=== PATIENT | male | born 1995 | race Hispanic/Latino ===

== ENCOUNTER 2024-08-12 21:15 | Emergency (ER) | payer SELFPAY ==
[~2024-08-12] VITALS: Ht 165.1 cm; Wt 59.0 kg
[2024-08-12 21:51] LABS: BASOPHILS # (AUTO) 0.06 K/uL (0.00-0.20); BASOPHILS % (AUTO) 0.4 % (0.0-5.0); EOSINOPHILS # (AUTO) 0.03 K/uL (0.00-0.70); EOSINOPHILS % (AUTO) 0.2 % (0.0-8.0); HEMATOCRIT 47.8 % (42-54); IMMATURE GRANULOCYTE ABSOLUTE 0.07 K/uL (0-1); LYMPHOCYTES # (AUTO) 2.7 K/uL (1.0-4.8); LYMPHOCYTES % (AUTO) 18.9 % (21.0-51.0); MEAN CORPUSCULAR HEMOGLOBIN 31.4 pg (27.0-33.0); MEAN CORPUSCULAR HGB CONC 35.6 g/dL (32.0-36.0); MEAN CORPUSCULAR VOLUME 88.4 fL (79-99); MONOCYTES # (AUTO) 1.1 K/uL (0.1-1.0); MONOCYTES % (AUTO) 7.4 % (3.0-13.0); NEUTROPHILS # (AUTO) 10.5 K/uL (1.8-7.7); NEUTROPHILS % (AUTO) 72.6 % (40.0-77.0); PLATELET COUNT (AUTO) 355 K/uL (130-400); RED BLOOD CELL COUNT(AUTO) 5.41 MIL/uL (4.50-6.20); RED CELL DISTRIBUTION WIDTH 12.4 % (11.0-15.5); WHITE BLOOD COUNT (AUTO) 14.5 K/uL (4.8-10.8)
--- NOTE | 2024-08-12 21:59 | NUR ---
ATTEMPT TO OBTAIN URINE SPECIMEN PATIENT IS VERY RESISTANT TO PROVIDING SPECIMEN, DOES NOT WANT TO AMBULATE TO RESTROOM. WHILE ASSISTING PATIENT TO RESTROOM FOR URINE SPECIMEN, MOTHER STATES PATIENT HAS BEEN VOICING AUDITORY HALLUCINATIONS, WILL STAY IN RESTROOM WITH PATIENT TO OBTAIN SPECIMEN.
[2024-08-12 22:09] LABS: CARBON DIOXIDE 25 mmol/L (21-32); CHLORIDE 103 mmol/L (101-111); CREATININE 1.1 mg/dL (0.5-1.3); GLOMERULAR FILTR. RATE CALC 93 mL/min (>90); GLUCOSE,RANDOM 99 mg/dL (70-105); SODIUM SERUM 140 mmol/L (136-145); UREA NITROGEN, BLOOD 12 mg/dL (7-18)
[2024-08-12 22:13] LABS: ALCOHOL, BLOOD < 3 mg/dL (0-10)
--- NOTE | 2024-08-12 22:15 | NUR ---
PATIENT UNABLE TO PROVIDE URINE SPECIMEN AT THIS TIME
[2024-08-12 22:16] LABS: ACETAMINOPHEN < 1 mcg/mL (10-29); SALICYLATE < 2.8 mg/dL (2.8-20.0)
--- NOTE | 2024-08-12 22:29 | ERN ---
ED Note History of Present Illness Stated Complaint: AUDITORY HALLUCINATIONS Chief Complaint: Medical Clearance Time Seen by MD: 21:24 Time Seen by Midlevel: 21:26 Dictation: 28-year-old male brought in from [place] for medical clearance. Mother at bedside states patient has was in skilled nursing center for two weeks and released last Tuesday. States said he was been released patient has been acting different, not speaking, walking with a size closed, having auditory hallucinations. Patient states in the past and previous half-way skilled nursing he was diagnosed with a schizophrenia but has not been taking any meds. Mother also states he used to take hydrocodone and oxycodone. Patient has not appointment on Tuesday with [facility]. When I interviewed the patient and ask her questions patient only nods yes or no but does not answer complaints sentences. Patient is shakes his head "no" when asked if the voices telling him to hurt himself or hurt anybody. So shakes his head no when asked if he has any suicidal ideations. Allergies: Coded Allergies: No Known Drug Allergies (Unverified Allergy, Unknown, 08/12/24) Past Medical History Past Medical History: Anxiety, Schizophrenia Surgical History: Unknown Review of System Dictation Constitutional: Negative for fever,chills, and weight loss Eyes: Negative for injury, pain,redness, and discharge ENT: Negative for injury,pain or swelling Cardiovascular: Negative for chest pain, palpitations, and edema Respiratory: Negative for shortness of breath, cough, and wheezing, Abdomen/GI: Negative for abdominal pain, nausea, vomiting, diarrhea, and constipation Back: Negative for injury and pain : Negative for injury, bleeding and discharge MS/Extremity: Negative for injury and deformity Skin: Negative for rash, and discoloration Neuro: Negative for headache, weakness, numbness, tingling, and seizure Psych: Negative for suicide ideation, homicidal ideation, having auditory hallucinations Review of Systems: was completed Initial Vital Sign VS Vital Signs Date Time Temp Pulse Resp B/P (MAP) Pulse Ox O2 Delivery O2 Flow Rate FiO2 08/12/24 21:16 97.3 102 16 127/83 Room Air 0 08/12/24 23:48 98 21 Physical Exam Dictation General: awake, alert, NAD Head/Face: Normocephalic, atraumatic Eyes: PERRL, EOMI, vision at baseline ENT: oral cavity clear, TMs clear, no signs of infection Neck: Trachea midline, supple, no nuchal rigidity Cardiovascular: RRR, normal S1/S2, No MRGs, no JVD Respiratory: CTAB, no respiratory distress, No rales or wheezes Abdomen: Soft, non-tender, non-distended, normal bowel sounds, no guarding or rebound. Skin: Warm, dry, normal turgor, no rash MS/Extremity: Pulses equal, no cyanosis, neurovascular intact, FROM Neuro: COAx4, GCS 15, strength 5/5, CN 2-12 intact, normal cerebellar exam, normal gait, Psych: Patient isn't answering complete sentences just shaking head yes or no, Results (Laboratory/Radiology) Laboratory/Radiology Laboratory Tests Test 08/12/24 21:45 White Blood Count 14.5 K/uL (4.8-10.8) H Red Blood Count 5.41 MIL/uL (4.50-6.20) Hemoglobin 17.0 g/dL (14.0-18.0) Hematocrit 47.8 % (42-54) Mean Corpuscular Volume 88.4 fL (79-99) Mean Corpuscular Hemoglobin 31.4 pg (27.0-33.0) Mean Corpuscular Hemoglobin Concent 35.6 g/dL (32.0-36.0) Red Cell Distribution Width 12.4 % (11.0-15.5) Platelet Count 355 K/uL (130-400) Mean Platelet Volume 9.5 fL (7.5-10.5) Immature Granulocyte % (Auto) 0.5 % (0-1) Neutrophils (%) (Auto) 72.6 % (40.0-77.0) Lymphocytes (%) (Auto) 18.9 % (21.0-51.0) L Monocytes (%) (Auto) 7.4 % (3.0-13.0) Eosinophils (%) (Auto) 0.2 % (0.0-8.0) Basophils (%) (Auto) 0.4 % (0.0-5.0) Neutrophils # (Auto) 10.5 K/uL (1.8-7.7) H Lymphocytes # (Auto) 2.7 K/uL (1.0-4.8) Monocytes # (Auto) 1.1 K/uL (0.1-1.0) H Eosinophils # (Auto) 0.03 K/uL (0.00-0.70) Basophils # (Auto) 0.06 K/uL (0.00-0.20) Absolute Immature Granulocyte (auto 0.07 K/uL (0-1) Nucleated Red Blood Cells 0.0 % (0.0-0.19) Sodium Level 140 mmol/L (136-145) Potassium Level 4.0 mmol/L (3.5-5.1) Chloride Level 103 mmol/L (101-111) Carbon Dioxide Level 25 mmol/L (21-32) Blood Urea Nitrogen 12 mg/dL (7-18) Creatinine 1.1 mg/dL (0.5-1.3) Glomerular Filtration Rate Calc 93 mL/min (>90) Random Glucose 99 mg/dL (70-105) Total Calcium 9.3 mg/dL (8.5-10.1) Salicylates Level < 2.8 mg/dL (2.8-20.0) L Acetaminophen Level < 1 mcg/mL (10-29) L Serum Alcohol < 3 mg/dL (0-10) Labs Reviewed?: Yes ED Course ED Course Orders Procedure Category Date Status Time Cbc With Differential LAB 08/12/24 Complete 21:31 Basic Metabolic Panel LAB 08/12/24 Complete 21:31 Salicylate LAB 08/12/24 Complete 21:31 Acetaminophen LAB 08/12/24 Complete 21:31 Alcohol, Blood LAB 08/12/24 Complete 21:31 Drug Screen Urine LAB 08/12/24 Logged 21:31 Vital Signs Date Time Temp Pulse Resp B/P (MAP) Pulse Ox O2 Delivery O2 Flow Rate FiO2 08/12/24 23:48 97.5 74 16 134/72 98 Room Air* 0 21 08/12/24 21:16 97.3 102 16 127/83 Room Air 0 Medical Decision Making MDM 28-year-old male brought in from [place] for medical clearance. Mother at bedside states patient has was in skilled nursing center for two weeks and released last Tuesday. States said he was been released patient has been acting different, not speaking, walking with a size closed, having auditory hallucinations. Patient states in the past and previous half-way skilled nursing he was diagnosed with a schizophrenia but has not been taking any meds. Mother also states he used to take hydrocodone and oxycodone. Patient has not appointment on Tuesday with [facility]. When I interviewed the patient and ask her questions patient only nods yes or no but does not answer complaints sentences. Patient is shakes his head "no" when asked if the voices telling him to hurt himself or hurt anybody. So shakes his head no when asked if he has any suic idal ideations. Patient attempted to urinate twice and unable to give urine sample. Discussed with the patient that we need a urine sample in order to medically clear him due to his leukocytosis and not they would not come and screen him. Patient told family member that he would rather go home. Discussed with the patient and family that if on Tuesday they have an appointment with [facility] he would probably need the same clearance if he would benefit from stain. Patient spoke to family status no that he wanted to leave. Spouse at bedside is willing to take responsibility for patient and sign AMA form. Exam benefits were explained in both verbalized understanding. DX & DISP Disposition: AMA Departure Impression: Primary Impression: Left against medical advice Additional Impression: Hallucinations Condition: Stable Referrals: SELF,REFERRAL (PCP) Time of Disposition: 23:49 I have reviewed the case, and I agree with, Diagnosis and Plan BUBBA MALDONADO NP August 12, 2024 22:29
--- NOTE | 2024-08-12 23:00 | NUR ---
PATIENT AMBULATED TO RESTROOM WITH MOTHER TO ATTEMPT URINE SPECIMEN, PATIENT UNABLE TO PROVIDE SPECIMEN AT THIS TIME
--- NOTE | 2024-08-12 23:45 | NUR ---
SPOUSE AT BESIDE REQUESTING TO LEAVE AMA, ALL RISKS OF LEAVING AMA EXPLAINED TO SPOUSE AND PATIENT BY Mark MALDONADO NP, SPOUSE VERBALIZES UNDERSTANDING OF ALL RISKS INCLUDING , VERBALIZES THAT SHE WILL RETURN WITH PATIENT TO AN ER IF CONDITION WORSENS.
[2024-08-12 23:48] VITALS: BP 134/72; PULSE 74; RESP 16; TEMP 97.5; O2SAT 98
== END 2024-08-12 23:50 | disposition left against medical advice (07) ==
LOC: EDH 21:15
DX: R44.3 Hallucinations, unspecified (principal)
CPT/HCPCS: 99283; 80048; 85025; 36415; G0481